=== PATIENT | male | born 1960 | race Caucasian/White ===

== ENCOUNTER 2019-12-10 09:01 | Inpatient (IN) | payer OTHER ==
--- OUTSIDE RECORDS SUMMARY | 2019-12-10 09:07 | XMS REPORT | Continuity of Care Document ---
:1960 External Reference #:[id number] Author Name Tyler Arellano M.D. (transmitted by agent of provider Akosua Juarez) Address [address] [facility] [address] [place] [address] Care Team Providers Name Role Phone Blake Solorzano D.O. - Internal Care Team Information Drawing Supervisor [phone] Medicine Problems Description No Information Available Social History Type Date Description Comments Sex Unknown Tobacco Use Start: Unknown Never Smoked Cigarettes Pt denies ever smoking cigar, pipe, e-cigarettes, or ever using chewing tobacco. Smoking Status Reviewed: 11/25/19 Never Smoked Cigarettes Pt denies ever smoking cigar, pipe, e-cigarettes, or ever using chewing tobacco. ETOH Use Occasionally consumes beer Tobacco Use Start: Unknown Patient has never smoked Recreational Drug Use Denies Drug Use Exercise Type/Frequency Walks daily gym(1 hour) 3-4 days a week Allergies, Adverse Reactions, Alerts Active Allergies Reaction Severity Comments Date Neosporin rash 08/06/2015 Lisinopril cough 09/10/2017 Medications Active Medications SIG Qnty Indications Ordering Date Provider Carvedilol 2 by mouth 180tabs Tyler Perez 07/13/2017 3.125mg Tablets twice daily Emelia Arellano Amoxicillin 4 tablets 1 4caps Tyler Perez 12/28/2016 500mg Capsules hour before Emelia Arellano dental work Aspirin 1 by mouth Tyler Perez 12/15/2015 81mg Chewtabs every day Emelia Arellano Spironolactone 1/2 tablet by 45tabs I42.9 Tyler Perez 10/14/2015 25mg Tablets mouth every day Emelia Arellano Vitamin B-12 1 po qd Unknown 2500mcg Tablets Tylenol as needed Unknown 325mg Tablets Fish Oil 1 by mouth Unknown 1000mg Capsules every day Immunizations Description No Information Available Vital Signs Date Vital Result Comment 11/25/2019 3:34pm Height 74 inches 6'2" Weight 297.38 lb with shoes Heart Rate 68 /min left radial BP Systolic Sitting 152 mmHg Lue, reg cuff BP Diastolic Sitting 96 mmHg Lue, reg cuff BP Systolic Standing 154 mmHg Lue, reg cuff BP Diastolic Standing 96 mmHg Lue, reg cuff BMI (Body Mass Index) 38.2 kg/m2 Ejection Fraction 50%-55% 10/10/19 echocardiogram 08/20/2019 3:22pm Height 74 inches 6'2" Weight 290.50 lb with shoes Heart Rate 49 /min apical 1 minute BP Systolic Sitting 144 mmHg BP Diastolic Sitting 90 mmHg BP Systolic Standing 142 mmHg BP Diastolic Standing 88 mmHg BMI (Body Mass Index) 37.3 kg/m2 Ejection Fraction 55-60% Echocardiogram 12/17/2018 Results Test Acquired Date Facility Test Result H/L Range Note Xray 11/25/2019 [facility] Chest PA & <pending> [address] [place] [address] [phone] CBC Auto 08/20/2019 [facility] White Blood 6.5 10^3/uL Normal 3.5-10.[address] [place] [address] [phone] Red Blood Count 4.68 10^6/uL Normal 4.18-5.48 Hemoglobin 14.2 g/dL Normal 14.0-18.0 Hematocrit 42 % Normal 42-52 Mean Corpuscular Volume 90 fL Normal 80-94 Mean Corpuscular Hemoglobin 30 pg Normal 27-31 Mean Corpuscular HGB Conc 34 g/dL Normal 31-36 Red Cell Distribution Width 14 % Normal 10-15 Platelet Count 216 10^3/uL Normal 150-450 Mean Platelet Volume 8.6 fL Normal 7.4-10.4 Abs Neutrophils 3.4 10^3/uL Normal 1.5-7.7 Abs Lymphocytes 1.9 10^3/uL Normal 1.0-4.8 Abs Monocytes 0.7 10^3/uL Normal 0-0.8 Abs Eosinophils 0.4 10^3/uL Normal 0-0.6 Abs Basophils 0.1 10^3/uL Normal 0-0.2 Abs Nucleated RBC 0.0 10^3/uL Granulocyte % 53.0 % Lymphocyte % 29.6 % Monocyte % 10.6 % Eosinophil % 5.6 % Basophil % 1.2 % Nucleated Red Blood Cells % 0.0 Comp Metabolic 08/20/2019 [facility] Sodium 141 mmol/L Normal 135-145 Panel [address] [place] [address] [phone] Potassium 3.9 mmol/L Normal 3.5-5.0 Chloride 106 mmol/L Normal 101-111 Co2 Carbon Dioxide 26 mmol/L Normal 22-32 Anion Gap 9 mmol/L Normal 2-11 Glucose 128 mg/dL High 70-100 Blood Urea Nitrogen 19 mg/dL Normal 6-24 Creatinine 0.90 mg/dL Normal 0.67-1.17 BUN/Creatinine Ratio 21.1 High 8-20 Calcium 8.9 mg/dL Normal 8.6-10.3 Total Protein 7.1 g/dL Normal 6.4-8.9 Albumin 4.1 g/dL Normal 3.2-5.2 Globulin 3.0 g/dL Normal 2-4 Albumin/Globulin Ratio 1.4 Normal 1-3 Total Bilirubin 0.80 mg/dL Normal 0.2-1.0 Alkaline Phosphatase 60 U/L Normal 34-104 Alt 14 U/L Normal 7-52 Ast 17 U/L Normal 13-39 Egfr Non- 87.3 >60 Egfr 105.6 >60 1 Laboratory test 08/20/2019 [facility] Magnesium 2.0 mg/dL Normal 1.9-2.7 2 finding [address] [place] [address] [phone] TSH (Thyroid Stim Horm) 2.60 mcIU/mL Normal 0.34-5.60 3 1 Because ethnic data is not always readily available, this report includes an eGFR for both -Americans and non- Americans. The National Kidney Disease Education Program (NKDEP) does not endorse the use of the MDRD equation for patients that are not between the ages of 18 and 70, are , have extremes of body size, muscle mass, or nutritional status, or are non- or non-. According to the National Kidney Foundation, irrespective of diagnosis, the stage of the disease is based on the level of kidney function: Stage Description GFR(mL/min/1.73 m(2)) 1 Kidney damage with normal or decreased GFR 90 2 Kidney damage with mild decrease in GFR 60-89 3 Moderate decrease in GFR 30-59 4 Severe decrease in GFR 15-29 5 Kidney failure <15 (or dialysis) 2 Copy Result to: BLAKE SOLORZANO ([id number]) 3 Copy Result to: BLAKE SOLORZANO ([id number]) Procedures Date Code Description Status 11/25/2019 08315 EKG Tracing & Interpretation Completed 10/10/2019 96544 ECHO Transthoracic, Real-Time 2D With Doppler And Color Completed Flow 10/10/2019 83220 ECHO Transthoracic, Real-Time 2D With Doppler And Color Completed Flow 09/06/2019 18354 Holter Monitor Review (24 hr)dr batsheva & interp only Completed 08/20/2019 01236 EKG Tracing & Interpretation Completed Medical Devices Description No Information Available Encounters Type Date Location Provider Dx Diagnosis Office Visit 08/20/2019 [facility] Tyler Tello42.9 Cardiomyopathy , 3:40p Emelia Arellano unspecified E66.01 Morbid (severe) obesity due to excess calories I50.32 Chronic diastolic (congestive) heart failure R00.1 Bradycardia, unspecified I49.3 Ventricular premature depolarization I10 Essential (primary) hypertension G47.30 Sleep apnea, unspecified Assessments Date Code Description Provider 11/25/2019 I42.9 Cardiomyopathy, unspecified Tyler Arellano M.D. 11/25/2019 I49.3 Ventricular premature depolarization Tyler Arellano M.D. 11/25/2019 E66.01 Morbid (severe) obesity due to excess Tyler Arellano M.D. calories 11/25/2019 I47.2 Ventricular tachycardia Tyler Arellano M.D. 11/25/2019 I50.32 Chronic diastolic (congestive) heart Tyler Arellano M.D. failure 11/25/2019 I35.0 Aortic valve stenosis Tyler Arellano M.D. 10/10/2019 I42.9 Cardiomyopathy, unspecified Tyler Arellano M.D. 10/10/2019 I42.9 Cardiomyopathy, unspecified [facility] 10/10/2019 I49.3 Ventricular premature depolarization [facility] Schedule 10/10/2019 E66.01 Morbid (severe) obesity due to excess [facility] Schedule calories 09/06/2019 I49.3 Ventricular premature depolarization Tyler Arellano M.D. 09/06/2019 I47.2 Ventricular tachycardia Tyler Arellano M.D. 08/20/2019 I42.9 Cardiomyopathy, unspecified Tyler Arellano M.D. 08/20/2019 E66.01 Morbid (severe) obesity due to excess Tyler Arellano M.D. calories 08/20/2019 I50.32 Chronic diastolic (congestive) heart Tyler Arellano M.D. failure 08/20/2019 R00.1 Bradycardia, jah Arellano M.D. 08/20/2019 I49.3 ECG: ventricular ectopics Tyler Arellano M.D. 08/20/2019 I10 Hypertensive disorder Tyler Arellano M.D. 08/20/2019 G47.30 Sleep apnea Tyler Arellano M.D. Plan of Treatment Future Appointment(s):12/17/2019 2:30 pm - Tyler Arellano M.D. at [facility]11/25/2019 - Tyler Arellano M.D.I42.9 Cardiomyopathy, tjfyxvvcgejW85.3 Ventricular premature depolarizationFollow up:arrange admission to [facility] for sotalol keep ov for 1..20E66.01 Morbid (severe) obesity due to excess tfiwuhniF02.2 Ventricular xaqkhzqbqcdM62.32 Chronic diastolic ( congestive) heart ukhizcoK83.0 Aortic valve stenosis Functional Status Description No Information Available Mental Status Description No Information Available Referrals Refer to Reason for Referral Status Appt Date Delfino Albert MD h/o and low s/p AVR. recovered function but Sent 12/2018 now with frequent pvc's despite coreg. please evaluate [address] [facility] [address] [place] [address] [phone]
[2019-12-10] MEDS ORDERED: Potassium Chlor TAB* 10 MEQ TAB.ER PO ONE ×2 (10:16→11:01)
[2019-12-10] MEDS ORDERED: Sotalol TAB* 80 MG PO SCH ×2 (11:00→21:00)
[2019-12-10] MEDS ORDERED: Saline FLUSH-PERIPHERAL* 10 ML SYRINGE IV FLUSH SCH (13:00)
--- NOTE | 2019-12-10 13:42 | HP ---
CC: Dr. Blake Cortez * HISTORY AND PHYSICAL: DATE OF ADMISSION: 12/10/19 ATTENDING PHYSICIAN: Dr. Tyler Arellano.* (DICTATED BY AMANDA UNDERWOOD NP) PRIMARY LPN CMA: Dr. Tyler Arellano. PRIMARY PHYSICIAN: Dr. Blake Cortez. ADMITTING DIAGNOSES: 1. High-density premature ventricular complex burden, here for elective sotalol medication load. 2. Nonischemic cardiomyopathy, provoked by premature ventricular complexes, here for sotalol med load, on carvedilol and Aldactone therapy. 3. History of orthostatic hypotension, historically intolerant of BRIDGET inhibitor therapy. 4. History of obstructive sleep apnea, compliant with CPAP therapy. 5. History of bioprosthetic aortic valve replacement, on aspirin therapy. HISTORY OF PRESENT ILLNESS: Viet is a pleasant 59-year-old male patient who follows with Dr. Tyler Arellano of our practice due to the above mentioned medical problems. He was recently evaluated in our practice and had an abnormal Holter monitor in the fall of 2018 that revealed a high-density PVC burden. He was seen in consultation by cop examiner Dr. Delfino Walker, who had recommended sotalol medication med load to reduce PVC burden in order to hopefully improve LVEF. Thus, the patient presented here to [facility] on 12/10/19 for elective sotalol medication load. In the past, he has had a history of orthostatic hypotension and has not tolerated BRIDGET inhibitor therapy. As a result, he is on carvedilol and Aldactone therapy for his nonischemic cardiomyopathy. He is compliant with medications including CPAP therapy. He adds the last time that his CPAP settings were evaluated was when it was prescribed in 2013. He offers no complaints of chest pain, dizziness, shortness of breath, palpitations, or edema. He had basic blood work obtained earlier today. Hemoglobin was 15.4, hematocrit 46, platelets 243. Sodium 140, potassium 3.8, creatinine 0.91. Last dose of carvedilol was yesterday evening at 10 o'clock. PAST MEDICAL HISTORY: 1. History of bioprosthetic aortic valve replacement in 2014. 2. Nonischemic cardiomyopathy with improvement in his LVEF after aortic valve replacement. 3. Orthostatic hypotension. 4. Obstructive sleep apnea, on CPAP therapy. 5. High-density PVCs. PAST SURGICAL HISTORY: Bioprosthetic aortic valve replacement, 07/27/15, [facility]; [address] [employer] Trifecta valve. MEDICATIONS: Home medications; 1. Carvedilol 3.125 mg p.o. b.i.d. 2. Aspirin 81 mg a day. 3. Aldactone 12.5 mg a day. 4. Vitamin B12 250 mcg p.o. daily. 5. Tylenol as directed. 6. Fish oil 1 g p.o. daily. 7. Amoxicillin antibiotic prophylaxis as needed. ALLERGIES: Listed include BACITRACIN, LISINOPRIL, NEOMYCIN, POLYMYXIN B. FAMILY HISTORY: Listed includes; 1. Father undergoing aortic valve replacement. He at the age of 72 due to complications of esophageal cancer. 2. Mother at the age of 78 due to complications of colon cancer. She also had a notable history of hypertension and congestive heart failure. SOCIAL HISTORY: The patient is to his Nya. He is a [employer] worker. He has 1 adult daughter. He denies tobacco use, drug use, or caffeine use. REVIEW OF SYSTEMS: All systems have been reviewed and otherwise negative except as above mentioned in HPI. PHYSICAL EXAMINATION GENERAL: The patient was up, ambulating halls. He is alert and oriented x3. Obese, pleasant cooperative, in no apparent distress.. HEENT: Head is atraumatic, normocephalic. Oral mucosa is moist. Tongue is midline. NECK: Supple. Trachea midline. No JVD. No carotid bruits. CARDIAC: Normal S1, S2. There is a grade 2/5 diastolic aortic valve murmur. Otherwise, no gallop or rub noted. LUNGS: Lung sounds auscultated posteriorly. No evidence of adventitious breath sounds noted. Respirations nonlabored. /GI: Abdomen is soft, nontender, nondistended. Normoactive bowel sounds x4. EXTREMITIES: No pedal edema. No clubbing. No cyanosis. PERIPHERAL VASCULAR: 3+ brachial and dorsalis pedis pulses palpated bilaterally and symmetrically. SKIN: Intact. No evidence of jaundice, rashes, or ecchymosis appreciated.. DIAGNOSTIC STUDIES/LAB DATA: Blood work 12/10/19; white count 5.2, hemoglobin 15.4, hematocrit 46, platelets 243. Sodium 140, potassium 3.8, creatinine 0.91 , magnesium 2.1. ECG prior to initiation of sotalol reviewed; sinus bradycardia rate 54 with lateral T-wave depression, isolated PVC. QTc 386. ASSESSMENT AND PLAN: 1. Moderate to high intensity premature ventricular contraction burden with a slight reduction in left ventricular ejection fraction, here for elective sotalol medication load. The patient is aware of risks including proarrhythmias and is agreeable to proceeding with admission for sotalol medication to be initiated. Baseline QTc was reviewed and is stable. We will give the patient 20 mEq of potassium now. Goal is to keep potassium greater than 4, magnesium greater than 2. We will initiate sotalol 80 mg p.o. b.i.d. He has relative bradycardia on carvedilol therapy, thus we will hold carvedilol therapy while we initiate sotalol and reevaluate. He will need daily BMP with magnesium and daily ECGs. We will follow closely. 2. History of nonischemic cardiomyopathy with normalization of left ventricular ejection fraction after aortic valve replacement in 2014, compensated on physical examination. Last assessment of left ventricular ejection fraction was via echocardiogram, 10/10/19. At that time, ejection fraction was 50% to 55%. He is on Coreg 3.125 mg p.o. b.i.d., Aldactone 12.5 mg a day, both of which are on hold. We will reevaluate, reinitiate them depending upon the patient's response to sotalol medication. 3. History of bioprosthetic aortic valve replacement, on aspirin therapy. Gradient stable on recent outpatient echo, September 2019. 4. History of obstructive sleep apnea, compliant with CPAP therapy. Has not had evaluation of settings since it was prescribed in 2013. Thus, we will order overnight oximetry. 5. Disposition, pending course. 6. The patient is full code. 7. DVT prophylaxis equals early frequent ambulation. Dr. Tyler Arellano has seen and examined the patient and agrees with the above assessment and plan. AMANDA UNDERWOOD NP [id number]/[facility] #: [id number] patient seen and examined on 12.10.19 and reviewed with Ms. Underwood. exam correction: 2/6 gayla at left sternal border. Agree with plan and will continue monitoring. Micah Arellano MD 1.16.20 3;52 pm MTDD
[2019-12-10] MEDS ORDERED: Carvedilol TAB* 3.125 MG PO SCH (21:00)
[2019-12-10] MEDS: Aspirin 81 mg CHEW TAB* 81 MG TAB.CHEW PO SCH (22:34)
[2019-12-11 06:52] LABS: BUN/Creatinine Ratio 18.5 (8-20); EGFR African American 102.6 (>60); EGFR Non-African American 84.8 (>60); Potassium 4.1 mmol/L (3.5-5.0)
[2019-12-11] MEDS ORDERED: Sotalol TAB* 80 MG PO SCH (09:00)
[2019-12-11] MEDS: Aspirin 81 mg CHEW TAB* 81 MG TAB.CHEW PO SCH (09:02)
[2019-12-11] MEDS: Sotalol TAB* 80 MG PO SCH ×2 (09:02→20:05)
--- NOTE | 2019-12-11 10:28 | PN ---
<Simran Underwood - Last Filed: 12/11/19 10:29> Subjective Date of Service: 12/11/19 - High density PVC here for Sotalol med load Interval History: No events last night, Patient offers no complaints but is inquiring about taking a shower. He has been up and ambulating halls with no complaints. Medications Active Medications: Aspirin (Aspirin 81 Mg Chew Tab*) 81 mg PO DAILY [facility] Last Admin: 12/11/19 09:02 Dose: 81 mg Sotalol HCl (Betapace Tab*) 40 mg PO BID [facility] Last Admin: 12/11/19 09:02 Dose: 40 mg Objective Vital Signs: Temp Pulse Resp BP Pulse Ox 97.7 F 54 16 129/83 94 12/11/19 08:03 12/11/19 08:03 12/11/19 08:03 12/11/19 08:03 12/11/19 08:03 Oxygen Devices in Use Now: None, CPAP Appearance: NAD, A+O x3, obese male patient Ears/Nose/Mouth/Throat: NL Teeth, Lips, Gums, Clear Oropharnyx, Mucous Membranes Moist Neck: NL Appearance and Movements; NL JVP, Trachea Midline Respiratory: Symmetrical Chest Expansion and Respiratory Effort, Clear to Auscultation Cardiovascular: No Edema, - - Normal S1S2, Irregular rate, regular rhythm. No gallop 2/5 aortic murmur Skin: No Rash or Ulcers Neurological: Alert and Oriented x 3 Lines/Tubes/Other Access: Clean, Dry and Intact Peripheral IV Laboratory Results: 12/11/19 06:24 Laboratory Results - last 24 hr 12/11/19 06:24 Sodium 138 Potassium 4.1 Chloride 105 Carbon Dioxide 27 Anion Gap 6 BUN 17 Creatinine 0.92 Est GFR ( Amer) 102.6 Est GFR (Non-Af Amer) 84.8 BUN/Creatinine Ratio 18.5 Glucose 102 H Calcium 9.0 Magnesium 2.0 EKG Data: 12/11/2019; Sinus bradycardia rate 50 with known inferolateral TWI. QTc 422 Telemetry reviewed. sinus rhythm rate 60-70. frequent runs of ventricular bigeminy and trigeminy with occasional couplets. no VT/VF Assessment/Plan #1 high density PVC burden here for elective Sotalol med load. First dose was 80mg at 1100 12/10/19. QTc increased to 474 thus dose was reduced to 40mg PO BID. QTc this morning 422. K+ and Mag stable. Will continue load at 40mg Po BID. He continues to have frequent periods of ventricular bigeminy and trigeminy with rare couplets. No VT/VF. Continue daily ECGs and daily labs. #2 h/o relative bradycardia; coreg on hold at this time given patient is being loaded with Sotalol. #3 h/o AVR 2014; On ASA 81/day. gradients stable on out patient echo. #4 disposition pending course. DVT prophylaxis = early frequent ambulation. d/w dr. Arellano who agrees with plan of care. Repeat ECG is at noon today. Attending: Tyler Arellano <Tyler Arellano - Last Filed: 12/11/19 16:45> Medications Active Medications: Aspirin (Aspirin 81 Mg Chew Tab*) 81 mg PO DAILY [facility] Last Admin: 12/11/19 09:02 Dose: 81 mg Potassium Chloride (Potassium Chloride Liquid) 20 meq PO DAILY [facility] Sotalol HCl (Betapace Tab*) 40 mg PO BID [facility] Last Admin: 12/11/19 09:02 Dose: 40 mg Objective Vital Signs: Temp Pulse Resp BP Pulse Ox 97.9 F 55 16 119/79 97 12/11/19 11:15 12/11/19 11:15 12/11/19 11:15 12/11/19 11:15 12/11/19 11:15 Laboratory Results: 12/11/19 06:24 Assessment/Plan Patient seen and examined. d/w Kj and Dr Albert . QTc stable on 40 mg bid of sotalol but pvc's still fairly frequent. Will give extra dose of 40 mg this afternoon and recheck ekg. If bradycardia /QT limits use of sotalol or pvc's persist, may have to consider a pacer to allow optimal beta blockade and pvc suppression. Micah Arellano MD. 12.11.19 4;45 pm Counseling and/or Coordination of Care Minutes: more than half of the 35+ minutes spent face to face and coordinating care.
[2019-12-11] MEDS ORDERED: Sotalol TAB* 80 MG PO ONE (16:06)
[2019-12-11] MEDS: Potassium Chloride* LIQUID 20 MEQ/15 ML UDC PO SCH (16:47)
[2019-12-12 07:25] LABS: Calcium 8.8 mg/dL (8.6-10.3); EGFR African American 93.2 (>60); Magnesium 2.1 mg/dL (1.9-2.7)
[2019-12-12] MEDS: Sotalol TAB* 80 MG PO SCH (09:12)
[2019-12-12] MEDS: Aspirin 81 mg CHEW TAB* 81 MG TAB.CHEW PO SCH (09:12)
[2019-12-12] MEDS: Potassium Chloride* LIQUID 20 MEQ/15 ML UDC PO SCH (09:12)
--- NOTE | 2019-12-12 10:27 | PN ---
<Simran Underwood - Last Filed: 12/12/19 10:21> Subjective Date of Service: 12/12/19 - high density PVC burden here for Sotalol med load Interval History: No events last night, He has been up and ambulating halls with no complaints. He is anxious to go home Medications Active Medications: Aspirin (Aspirin 81 Mg Chew Tab*) 81 mg PO DAILY [facility] Last Admin: 12/12/19 09:12 Dose: 81 mg Potassium Chloride (Potassium Chloride Liquid) 20 meq PO DAILY [facility] Last Admin: 12/12/19 09:12 Dose: 20 meq Sotalol HCl (Betapace Tab*) 40 mg PO BID [facility] Last Admin: 12/12/19 09:12 Dose: 40 mg Objective Vital Signs: Temp Pulse Resp BP Pulse Ox 97.2 F 55 16 114/72 93 12/12/19 07:15 12/12/19 07:15 12/12/19 07:15 12/12/19 07:15 12/12/19 07:15 Oxygen Devices in Use Now: None, CPAP Appearance: NAD, A+O x3, obese male patient Ears/Nose/Mouth/Throat: NL Teeth, Lips, Gums, Clear Oropharnyx, Mucous Membranes Moist Neck: NL Appearance and Movements; NL JVP, Trachea Midline Respiratory: Symmetrical Chest Expansion and Respiratory Effort, Clear to Auscultation Cardiovascular: No Edema, - - Normal S1S2, Irregular rate, regular rhythm. No gallop 2/5 aortic murmur Skin: No Rash or Ulcers Neurological: Alert and Oriented x 3 Lines/Tubes/Other Access: Clean, Dry and Intact Peripheral IV Laboratory Results: 12/12/19 05:24 Laboratory Results - last 24 hr 12/12/19 05:24 Sodium 139 Potassium 4.0 Chloride 106 Carbon Dioxide 26 Anion Gap 7 BUN 17 Creatinine 1.00 Est GFR ( Amer) 93.2 Est GFR (Non-Af Amer) 77.0 BUN/Creatinine Ratio 17.0 Glucose 103 H Calcium 8.8 Magnesium 2.1 EKG Data: 12/12/2019;Sinus rhythm with frequent PVCs. Manual QTc 435 12/11/2019; Sinus bradycardia rate 50 with known inferolateral TWI. QTc 422 Telemetry reviewed. sinus rhythm rate 60-70. frequent runs of ventricular bigeminy and trigeminy with occasional couplets. no VT/VF Assessment/Plan #1 h/o moderate to high PVC burden here for Sotalol med load. First dose was at 1100. Manual QTc on today's ECG is 435. K+ and mag are stable. Will continue Sotalol 40mg PO BID. If PVC burden does not respond with Sotalol patient need PPM to allow optimization of bblocker therapy. Patient had 502 PVCs in the from 0001 12/11/19 to 001 12/12/19. #2 h/o ALFONSO compliant with CPAP. Reviewed overnight oximetry. Mean Spo2 was 91.9% , mean low 89.7%. He had 19 desaturation events over 3 minutes duration and 10 events < 3 minustes duration. I spoke with Rebecca SILVERMAN with Dr. Antoine who recommended patient follow up with them ( will need referral) Patient aware. #3 h/o AVR; on ASA therapy #4 Disposition pending course. Patient full code. Anticipate discharge 12/13/19. d/w Dr. Arellano Attending: Tyler Arellano <Tyler Arellano - Last Filed: 12/13/19 10:21> Objective Vital Signs: Temp Pulse Resp BP Pulse Ox 97.9 F 56 16 116/76 97 12/12/19 15:15 12/12/19 15:15 12/12/19 15:15 12/12/19 15:15 12/12/19 15:15 Laboratory Results: 12/12/19 05:24 Assessment/Plan late entry: Pt examined and reviewed with Ms. Underwood on 12.12.19. Reviewed plan for continued sotalol rx. QTc stable but pvc's persist with variation in frequency over time. Pt will continue on sotalol Risks/benefits/need for surveillance discussed. Understands potential for bradycardia and proarrhythmia but probably relatively low given QTC stability and relatively low dose. Potential need for pacer to prevent bradycardia in the setting of need for beta gael rx also discussed. See discharge summary for details on therapy and followup surveillance including ov next week and followup holter. more than 30 minutes spent in coordination of care, discussion face to face and arranging discharge. Micah Arellano MD 12.13.19 9;51 am Counseling and/or Coordination of Care Minutes: >30 minut
[2019-12-12] MEDS ORDERED: Sotalol TAB* 80 MG PO ONE (12:01)
[2019-12-12 15:59] VITALS: BP 116/76
[2019-12-12] MEDS ORDERED: Sotalol TAB* 80 MG PO SCH (22:00)
--- NOTE | 2019-12-13 00:21 | DS ---
ADDENDUM NOW INCLUDED IN THIS REPORT DISCHARGE SUMMARY: DATE OF ADMISSION: 12/10/19 TENTATIVE DATE OF DISCHARGE: Pending no complications, 12/12/19. ATTENDING PHYSICIAN: Dr. Tyler Arellano, Cardiology.* (DICTATED BY AMANDA WAGNER NP) ADMITTING DIAGNOSES: 1. Ltlaurdi-zf-dnyg intensity premature ventricular contraction burden with worsening left ventricular dysfunction, here for elective sotalol medication load. 2. History of aortic valve replacement with stable gradients, on aspirin therapy. 3. History of nonischemic cardiomyopathy, on carvedilol and Aldactone therapy. 4. History of obstructive sleep apnea, compliant with CPAP therapy, although settings have not been evaluated since it was prescribed in 2013. DISCHARGE DIAGNOSES: 1. History of tptdagkv-vb-bxgl intensity premature ventricular contraction burden, here for elective sotalol medication load; patient tolerated sotalol med load, carvedilol was discontinued due to relative bradycardia. He has been normotensive, QTc this morning 12/12/19, was 436. This was done manually. He will go home with sotalol 80 mg in the morning, 40 mg at night with a repeat ambulatory monitor in 7 to 10 days to reassess premature ventricular contraction burden. 2. History of non-ischemic cardiomyopathy, on carvedilol, has been discontinued due to relative bradycardia. He is now on sotalol due to above # 1. Aldactone will also be discontinued due to relative bradycardia. He is compensated on physical examination. 3. History of obstructive sleep apnea. Overnight oximetry report, mean SpO2 91.9%, mean low 89.7%. The patient had 19 desaturation events over 3 minutes, 10 desaturation events less than 3 minutes. I spoke to Rebecca with Dr. Antoine who recommended referal for reevaluation of settings for CPAP. PROCEDURE PERFORMED: None. COURSE OF HOSPITAL STAY: This is a pleasant 59-year-old male patient who follows with Dr. Tyler Arellano of our practice in addition to Dr. Delfino Albert , Electrophysiology at [facility]. Recently, he has had outpatient ambulatory monitoring that revealed moderate PVC burden with slight reduction in LVEF, thus it was recommended that he undergo sotalol medication load to help suppress his PVCs. The patient's first dose of sotalol was 12/10/19. He received 80 mg, QTc increased slightly to 474, thus dose was reduced to 40 mg p.o. b.i.d. On 12/11/19, QTc was stable at 422, thus he was given 40 mg of sotalol at 0800 and 40 mg at noon. QTc remained stable. He received a total of 120 mg of sotalol on 12/11/19. I personally calculated the amount of PVCs on telemetry, which had reduced to 502 from midnight 12/11/19 to midnight . There has been no evidence of VT or VF noted on telemetry. Manual QTc this morning 12/12/19 was 436. Thus plan is to discharge the patient home on 80 mg of sotalol in the morning, 40 mg of sotalol at night. He has a history of relative bradycardia. As a result, carvedilol has been discontinued. He has a tendency for orthostatic hypotension, thus Aldactone has been discontinued. As mentioned before, his overnight oximetry revealed 19 desaturation episodes greater than 3 minutes in duration. I did speak to Dr. Antoine's nurse practitioner Rebecca who felt that it would be reasonable to refer the patient to their practice for evaluation of settings. This could also be contributing to [id number] intensity PVC burden. Potassium and magnesium have been stable during the patient's stay. Plan is to repeat ECG at 1600 on 12/12/19. If QTc remains stable, the patient will be discharged home later this evening at the discretion of Dr. Arellano. The patient has been up and ambulating with no complaints. Physical exam was benign today. DISCHARGE CONDITION: Stable, to be discharged home. DISCHARGE MEDICATIONS: 1. Sotalol 80 mg in the morning, 40 mg at night. 2. Aspirin 81 mg a day. 3. Multivitamin as directed. Discontinued Medications: 1. Carvedilol 3.125 mg p.o. b.i.d. 2. Aldactone 12.5 mg a day. OUTPATIENT BLOOD WORK TO BE OBTAINED: None. OUTPATIENT FOLLOWUP APPOINTMENTS: 1. The patient will need to follow up with Dr. Tyler Arellano or [facility] in 4 weeks with ECG at that time. The patient will need an outpatient ambulatory surveillance system monitor in 7 to 10 days for reassessment of PVC burden. 2. The patient will need followup with PCP in 7 to 10 days. DISCHARGE ACTIVITY RESTRICTIONS: None. Dr. Tyler Arellano has personally seen and examined the patient and agrees with the above plan. AMANDA WAGNER NP ADDENDUM: Please note the ECG obtained on 12/12/19 at 1600 was reviewed. QTc 420. He was in sinus rhythm with frequent PVCs in a trigeminal pattern. Rate 57. Dr. Arellano recommended discharging the patient home. Order placed, nursing staff aware. AMANDA AWGNER, HERRER[place] [id number]/[facility] #: [id number]/[facility] #: [id number] DARIN
--- NOTE | 2019-12-13 01:45 | DS ---
DISCHARGE SUMMARY: DATE OF ADMISSION: DATE OF DISCHARGE: ADDENDUM: Please note the ECG obtained on 12/12/19 at 1600 was reviewed. QTc 420. He was in sinus rhythm with frequent PVCs in a trigeminal pattern. Rate 57. Dr. Arellano recommended discharging the patient home. Order placed, nursing staff aware. AMANDA WAGNER NP [id number]/[facility] #: [id number] DARIN
[2019-12-13] MEDS ORDERED: Sotalol TAB* 80 MG PO SCH (09:00)
== END 2019-12-12 17:49 | disposition home or self-care (01) | DRG 310 ==
LOC: MEDTELE 09:01
PROVIDERS: ADMIT Internal Medicine Cardiovascular Disease; ATTEND Internal Medicine Cardiovascular Disease
DX: I49.3 Ventricular premature depolarization (principal); I42.8 Other cardiomyopathies; R00.8 Other abnormalities of heart beat; G47.33 Obstructive sleep apnea (adult) (pediatric); T44.7X5A Adverse effect of beta-adrenoreceptor antagonists, initial encounter; Y92.239 Unspecified place in hospital as the place of occurrence of the external cause; Z95.2 Presence of prosthetic heart valve; Z88.1 Allergy status to other antibiotic agents; Z88.8 Allergy status to other drugs, medicaments and biological substances; Z79.82 Long term (current) use of aspirin; Z28.21 Immunization not carried out because of patient refusal
CPT/HCPCS: 36415; 80048; 83735; 93005; 94762; A9270-GY